=== PATIENT | male | born 1980 | race Caucasian/White ===

== ENCOUNTER 2018-04-04 23:14 | Emergency (ER) | payer OTHER ==
[2018-04-04] MEDS ORDERED: ACETAMINOPHEN 325 MG TABLET PO ONE (23:19)
[2018-04-04 23:21] VITALS: BP 123/96
--- NOTE | 2018-04-04 23:50 | RADIOLOGY REPORT (SQ) ---
EXAM DESCRIPTION: XR FOOT 3 OR MORE VIEWS COMPLETED DATE/TME: 04/04/2018 00:00 CLINICAL HISTORY: 37 years, Male, injury COMPARISON: None. FINDINGS: 3 views of the left foot. Minimally displaced avulsion fracture arising from the dorsal aspect of the navicular. Edema of the ankle. Possible avulsion fracture involving the distal tip of the fibula. Normal osseous mineralization. IMPRESSION: 1. Minimally displaced avulsion fracture arising from the dorsal aspect of the navicular. 2. Possible avulsion fracture involving the distal tip of the fibula. 2011 [facility] [employer]- All Rights Reserved
[2018-04-05] MEDS ORDERED: OXYCODONE-ACETAMINOPHEN 5-325 MG TABLET PO ONE (00:41)
[2018-04-05] MEDS ORDERED: KETOROLAC TROMETHAMINE 60 MG/2 ML SDV IM ONE (00:41)
--- NOTE | 2018-04-05 00:47 | ER Document Report ---
ED Extremity Problem, Lower - General Chief Complaint: Foot Injury Stated Complaint: FOOT INJURY Time Seen by Provider: 04/05/18 00:40 Mode of Arrival: Stretcher Information source: Patient Notes: Chief complaint: Left leg injury History of complain:( obtained from----patient) 37 years old male presents today with left lower leg injury while coming down the step twisted, just prior to arrival. Since then having pain and unable to bear weight. No other injuries Onset: Sudden Duration: Just prior to arrival Severity: Moderate to severe Quality: Sharp Context: Twisted Exacerbating factor and relieving factors: Weightbearing REVIEW OF SYSTEMS: CONSTITUTIONAL : Denies fever, chills, or sweats. Denies recent illness. EENT: Denies eye, ear, throat, or mouth pain or symptoms. Denies nasal or sinus congestion or discharge. Denies throat, tongue, or mouth swelling or difficulty swallowing. CARDIOVASCULAR: Denies chest pain. Denies palpitations or racing or irregular heart beat. Denies ankle edema. RESPIRATORY: Denies cough, cold, or chest congestion. Denies shortness of breath, difficulty breathing, or wheezing. GASTROINTESTINAL: Denies distention. Denies nausea, vomiting, or diarrhea. Denies blood in vomitus, stools, or per rectum. Denies black, tarry stools. Denies constipation. GENITOURINARY: Denies difficulty urinating, painful urination, burning, frequency, blood in urine, or discharge. FEMALE GENITOURINARY: Denies vaginal bleeding, heavy or abnormal periods, irregular periods. Denies vaginal discharge or odor. MUSCULOSKELETAL: Denies back or neck pain or stiffness. Denies joint pain or swelling. SKIN: Denies rash, lesions or sores. HEMATOLOGIC : Denies easy bruising or bleeding. LYMPHATIC: Denies swollen, enlarged glands. NEUROLOGICAL: Denies confusion or altered mental status. Denies passing out or loss of consciousness. Denies dizziness or lightheadedness. Denies headache. Denies weakness or paralysis or loss of use of either side. Denies problems with gait or speech. Denies sensory loss, numbness, or tingling. Denies seizures. PSYCHIATRIC: Denies anxiety or stress. Denies depression, suicidal ideation, or homicidal ideation. ALL OTHER SYSTEMS REVIEWED AND NEGATIVE. PHYSICAL EXAMINATION: GENERAL: Well-appearing, well-nourished and in acute distress. Obesity HEAD: Atraumatic, normocephalic. EYES: Pupils equal round and reactive to light, extraocular movements intact, conjunctiva are normal. ENT: Nares patent, oropharynx clear without exudates. Moist mucous membranes. NECK: Normal range of motion, supple without lymphadenopathy LUNGS: Breath sounds clear to auscultation bilaterally and equal. No wheezes rales or rhonchi. HEART: Regular rate and rhythm without murmurs ABDOMEN: Soft, nontender, nondistended abdomen. No guarding, no rebound. No masses appreciated. Examination of genitals-deferred Musculoskeletal: Right lower leg over the bimalleolar region shows swelling, proximal part of the feet shows swelling tenderness. Could not perform any flexion extension eversion and inversion due to pain. Neurovascular function distally was within normal limit. , no pitting or edema. No cyanosis. NEUROLOGICAL: Cranial nerves grossly intact. Normal speech, normal gait. Normal sensory, motor exams PSYCH: Normal mood, normal affect. SKIN: Warm, Dry, normal turgor, no rashes or lesions noted. Dictation was performed using [employer] voice recognition software TRAVEL OUTSIDE OF THE [place] IN LAST 30 DAYS: No - HPI Notes: Dictated - Related Data Allergies/Adverse Reactions: No Known Allergies Allergy (Unverified 04/04/18 23:18) Past Medical History - Social History Smoking Status: Unknown if Ever Smoked Cigarette use (# per day): No Chew tobacco use (# tins/day): No Smoking Education Provided: No Frequency of alcohol use: Rare Drug Abuse: None Family History: Reviewed & Not Pertinent Review of Systems - Review of Systems Notes: Dictated Physical Exam - Vital signs Vitals: Temp Pulse Resp BP Pulse Ox 98.4 F 93 19 123/96 H 99 04/04/18 23:20 04/04/18 23:20 04/04/18 23:20 04/04/18 23:20 04/04/18 23:20 - Notes Notes: Dictated Course - Re-evaluation Re-evalutation: 04/05/18 00:46 Given pain medication, splinted and given crutches - Vital Signs Vital signs: Temp Pulse Resp BP Pulse Ox 98.4 F 93 19 123/96 H 99 04/04/18 23:20 04/04/18 23:20 04/04/18 23:20 04/04/18 23:20 04/04/18 23:20 - Diagnostic Test Radiology reviewed: Reports reviewed - Fracture navicular bone Discharge - Discharge Clinical Impression: Fracture of navicular bone of both feet Qualifiers: Encounter type: initial encounter Fracture type: closed Qualified Code(s): S92.251A - Displaced fracture of navicular [scaphoid] of right foot, initial encounter for closed fracture; S92.252A - Displaced fracture of navicular [ scaphoid] of left foot, initial encounter for closed fracture; S92.252A - Displaced fracture of navicular [scaphoid] of left foot, initial encounter for closed fracture Fracture, fibula Qualifiers: Encounter type: initial encounter Fibula location: proximal Fracture type: closed Fracture morphology: unspecified fracture morphology Laterality: right Qualified Code(s): S82.831A - Other fracture of upper and lower end of right fibula, initial encounter for closed fracture Condition: Fair Disposition: HOME, SELF-CARE Instructions: Fracture ([facility]) Prescriptions: Naproxen 500 mg PO BID #30 tablet Oxycodone HCl/Acetaminophen [Percocet 5-325 mg Tablet] 1 tab PO ASDIR PRN #15 tab PRN Reason: Referrals: LOCALMD,NO [NO LOCAL MD] - Follow up as needed
== END 2018-04-05 02:25 | disposition home or self-care (01) ==
LOC: ER 23:14
DX: S92.251A Displaced fracture of navicular [scaphoid] of right foot, initial encounter for closed fracture (principal); S92.252A Displaced fracture of navicular [scaphoid] of left foot, initial encounter for closed fracture; S82.401A Unspecified fracture of shaft of right fibula, initial encounter for closed fracture; X50.0XXA Overexertion from strenuous movement or load, initial encounter
CPT/HCPCS: 99283